=== PATIENT | male | born 1980 | race Caucasian/White ===

== ENCOUNTER 2018-12-13 10:07 | Emergency (ER) | payer MEDICAID ==
[2018-12-13 10:24] VITALS: BMI 29.7
[2018-12-13 10:59] LABS: BASOPHILS 0.4 % (0-2); EOSINOPHILS 2.2 % (0-7); HEMATOCRIT 41.2 % (42.0-54.0); HEMOGLOBIN 14.2 g/dL (13.5-17.5); IMMATURE GRANULOCYTES 0.3 % (0-5); LYMPHOCYTES 32.9 % (15-50); MCH 30.7 pg (26.0-34.0); MCHC 34.5 g/dL (31.0-37.0); MEAN PLATELET VOLUME 10.1 fL (7.4-10.4); MONOCYTES 5.2 % (2-11); PLATELET COUNT 280 10x3/uL (130-400); RBC 4.63 10x6/uL (4.20-6.10); RDW 12.6 % (11.5-14.5); WBC 6.9 10x3/uL (4.8-10.8)
[2018-12-13 11:00] LABS: KETONE - SERUM NEGATIVE (NEGATIVE)
[2018-12-13 11:12] LABS: ALBUMIN 3.7 g/dL (3.4-5.0); ALKALINE PHOSPHATASE 74 U/L (46-116); ALT (SGPT) 28 U/L (10-68); BILIRUBIN - TOTAL 0.48 mg/dL (0.2-1.3); CALC OSMOLALITY 290 mosm/kg (275-300); CALCIUM 9.1 mg/dL (8.5-10.1); CARBON DIOXIDE 26.7 mmol/L (21.0-32.0); CHLORIDE - SERUM 104 mmol/L (98-107); CREATININE - SERUM 0.9 mg/dL (0.6-1.3); GLUCOSE 305 mg/dL (74-106); MAGNESIUM - SERUM 1.8 mg/dL (1.8-2.4); POTASSIUM - SERUM 4.4 mmol/L (3.5-5.1); PROTEIN - SERUM 7.2 g/dL (6.4-8.2); SODIUM 140 mmol/L (136-145); UREA NITROGEN 16 mg/dL (7-18); eGFR NON AFRICAN AMERICAN > 90 mL/min (90-120)
[2018-12-13 11:37] LABS: APPEARANCE CLEAR (CLEAR); BILIRUBIN NEGATIVE (NEGATIVE); COLOR YELLOW (YELLOW); GLUCOSE 1000 mg/dL (NEGATIVE); KETONE NEGATIVE (NEGATIVE); NITRITE NEGATIVE (NEGATIVE); PROTEIN NEGATIVE (NEGATIVE); SPECIFIC GRAVITY 1.015 (1.005-1.020); UROBILINOGEN NORMAL (NORMAL)
[2018-12-13 12:57] VITALS: BP 121/78
== END 2018-12-13 12:58 | disposition home or self-care (01) ==
LOC: D.ER 10:07
PROVIDERS: Emergency Medicine
DX: E11.65 Type 2 diabetes mellitus with hyperglycemia (principal); Z79.4 Long term (current) use of insulin

== ENCOUNTER 2019-01-31 14:04 | Emergency (ER) | payer MEDICAID ==
[~2019-01-31] VITALS: Ht 180.3 cm; Wt 97.1 kg
[2019-01-31 14:20] VITALS: BP 108/70; Ht 180.3 cm; Wt 97.1 kg
[2019-01-31] MEDS ORDERED: GLUCOPHAGE500 MG PO (14:24)
[2019-01-31] MEDS ORDERED: LEVEMIR IN100 UNITS/ SC (14:24)
[2019-01-31] MEDS ORDERED: PAXIL20 MG PO (14:25)
[2019-01-31] MEDS ORDERED: AMITRIPTYLINE H50 MG PO (14:25)
[2019-01-31] MEDS ORDERED: GLIPIZIDE10 MG PO (14:25)
[2019-01-31 14:46] LABS: APPEARANCE CLEAR (CLEAR); COLOR YELLOW (YELLOW); NITRITE NEGATIVE (NEGATIVE); PROTEIN NEGATIVE (NEGATIVE)
[2019-01-31 14:47] LABS: BILIRUBIN NEGATIVE (NEGATIVE); GLUCOSE 1000 mg/dL (NEGATIVE); KETONE NEGATIVE (NEGATIVE); UROBILINOGEN NORMAL (NORMAL)
== END 2019-01-31 15:54 | disposition left against medical advice (07) ==
LOC: D.ER 14:04
PROVIDERS: Family Medicine
DX: E11.65 Type 2 diabetes mellitus with hyperglycemia (principal); Z79.4 Long term (current) use of insulin

== ENCOUNTER 2020-03-10 19:49 | Emergency (ER) | payer OTHER ==
[~2020-03-10] VITALS: Ht 180.3 cm; Wt 100.0 kg
[~2020-03-10 19:49] MED LIST: AMITRIPTYLINE H50 MG PO; GLIPIZIDE10 MG PO; GLUCOPHAGE500 MG PO; LEVEMIR IN100 UNITS/ SC; PAXIL20 MG PO
[2020-03-10 19:56] VITALS: BP 138/84; Ht 180.3 cm; Wt 100.0 kg
[2020-03-10] MEDS ORDERED: ATARAX 25 MG TA25 MG PO (21:22)
[2020-03-10] MEDS ORDERED: PEPCID40 MG PO (21:22)
== END 2020-03-10 22:26 | disposition home or self-care (01) ==
LOC: D.ER 19:49
DX: L50.9 Urticaria, unspecified (principal); R21 Rash and other nonspecific skin eruption; E11.9 Type 2 diabetes mellitus without complications; Z79.84 Long term (current) use of oral hypoglycemic drugs